=== PATIENT | female | born 1995 | race Caucasian/White ===

== ENCOUNTER 2017-01-16 17:57 | Emergency (ER) | payer MEDICAID, OTHER ==
[2017-01-16 17:58] VITALS: BMI 24.7
[2017-01-16 18:04] VITALS: TEMP 98.2
[2017-01-16] MEDS ORDERED: Sodium Chloride 0.9% 1,000 ML IV STA (18:33)
--- NOTE | 2017-01-16 18:39 | ED PDOC ---
Arrival/HPI - General Chief Complaint: GI Problem Time Seen by Provider: 01/16/17 18:27 Historian: Patient - History of Present Illness Narrative History of Present Illness (Text): 01/16/17 18:35 Vivi Cortes is a 21 year old female who presents to the emergency department complaining of epigastric abdominal pain associated with nausea and vomiting since today morning. States she had 9 episodes of non-bloody, non- bilious vomiting since today morning. Denies any sick contacts at home or new foods. Tangentially, patient also informs that she has increased urge to urinate , but is unable to void completely. States last menstrual period was last week. Denies any burning sensation while urinating or flank pain. Denies any fever, chills, headache, dizziness, difficulty breathing, diarrhea, or any other complaints at this time. Time/Duration: Other (today morning ) Symptom Onset: Gradual Symptom Course: Unchanged Severity Level: Mild Activities at Onset: Light Past Medical History - Provider Review Nursing Documentation Reviewed: Yes - Infectious Disease Hx of Infectious Diseases: None - Tetanus Immunization Tetanus Immunization: Unknown - Cardiac Hx Cardiac Disorders: No - Pulmonary Hx Asthma: Yes - Neurological Hx Neurological Disorder: No - HEENT Hx HEENT Disorder: No - Renal Hx Renal Disorder: No - Endocrine/Metabolic Hx Endocrine Disorders: No - Hematological/Oncological Hx Blood Disorders: No - Integumentary Hx Dermatological Disorder: No - Musculoskeletal/Rheumatological Hx Musculoskeletal Disorders: No - Gastrointestinal Hx Gastrointestinal Disorders: No - Genitourinary/Gynecological Hx Genitourinary Disorders: No - Psychiatric Hx Psychophysiologic Disorder: Yes Hx Anxiety: Yes Hx Depression: Yes Hx Substance Use: Yes (CANNABIS) - Anesthesia Hx Anesthesia: No Hx Anesthesia Reactions: No Hx Malignant Hyperthermia: No - Suicidal Assessment Feels Threatened In Home Enviroment: No Family/Social History - Physician Review Nursing Documentation Reviewed: Yes Family/Social History: No Known Family HX Smoking Status: Never Smoked Hx Alcohol Use: Yes Frequency of alcohol use: Socially Hx Substance Use: Yes (CANNABIS) Allergies/Home Meds Allergies/Adverse Reactions: Allergies No Known Allergies Allergy (Verified 01/16/17 18:04) Home Medications: Home Meds Medication Instructions Recorded Confirmed Sertraline [Zoloft] 100 mg PO DAILY 01/16/17 01/16/17 Review of Systems - Physician Review All systems were reviewed & negative as marked: Yes - Review of Systems Constitutional: Normal. absent: Fatigue, Fevers Respiratory: Normal. absent: SOB, Cough, Sputum Cardiovascular: Normal. absent: Chest Pain, Palpitations Gastrointestinal: Abdominal Pain, Nausea, Vomiting. absent: Diarrhea Genitourinary Female: Frequency. absent: Vaginal Bleeding, Vaginal Discharge Neurological: Normal. absent: Headache, Dizziness Physical Exam Vital Signs Reviewed: Yes Vital Signs Temp Pulse Resp BP Pulse Ox 01/16/17 19:55 78 18 118/76 100 01/16/17 18:00 98.2 F 94 H 19 127/85 99 Temperature: Afebrile Blood Pressure: Normal Pulse: Regular Respiratory Rate: Normal Appearance: Positive for: Well-Appearing, Non-Toxic, Comfortable Pain Distress: None Mental Status: Positive for: Alert and Oriented X 3 - Systems Exam Head: Present: Atraumatic, Normocephalic Pupils: Present: PERRL Conjunctiva: Present: Normal Mouth: Present: Moist Mucous Membranes Respiratory/Chest: Present: Clear to Auscultation, Good Air Exchange. No: Respiratory Distress, Accessory Muscle Use Cardiovascular: Present: Regular Rate and Rhythm, Normal S1, S2. No: Murmurs Abdomen: Present: Tenderness (Epigastric tenderness with guarding ), Normal Bowel Sounds, Guarding. No: Distention, Peritoneal Signs, Rebound Upper Extremity: Present: Normal Inspection. No: Cyanosis, Edema Lower Extremity: Present: Normal Inspection. No: Edema Neurological: Present: GCS=15, CN II-XII Intact, Speech Normal, Motor Func Grossly Intact, Normal Sensory Function Skin: Present: Warm, Dry, Normal Color. No: Rashes Psychiatric: Present: Alert, Oriented x 3, Normal Insight, Normal Concentration Medical Decision Making ED Course and Treatment: 01/16/17 18:41 Impression: A 21 year old female who presents to the emergency department complaining of epigastric pain associated with nausea and vomiting. Also notes of urinary symptoms. Differential Diagnosis included but are not limited to: abdominal pain secondary to gastritis. Urinary symptoms r/o UTI Plan: -- Labs -- Pepcid -- Zofran -- IVF -- Urine Culture -- Urinalysis -- Reassess and disposition Progress Notes: 01/16/17 20:26. Labs reviewed and negative. UA negative for UTI. Patient well hydrated. She no longer has symptoms. She was advised to keep well hydrated and take medications as prescribed. Advised to return to the ED if symptoms worsen or any other concern. - Lab Interpretations Lab Results: 01/16/17 18:43 01/16/17 18:43 Lab Results 01/16/17 18:43: Urine Color Yellow, Urine Appearance Clear, Urine pH 7.0, Ur Specific [place] 1.015, Urine Protein 30 H, Urine Glucose (UA) Negative, Urine Ketones >=80, Urine Blood Negative, Urine Nitrate Negative, Urine Bilirubin Negative, Urine Urobilinogen 1.0 H, Ur Leukocyte Esterase Negative, Urine RBC 0 - 2, Urine WBC 0 - 2, Ur Epithelial Cells 3 - 4, Calcium Oxalate Crystal Small, Urine Bacteria Mod 01/16/17 18:43: Sodium 139, Potassium 4.3, Chloride 104, Carbon Dioxide 24, Anion Gap 15, BUN 14, Creatinine 0.7, Est GFR ( Amer) > 60, Est GFR (Non- Af Amer) > 60, Random Glucose 80, Calcium 9.3, Total Bilirubin 0.5, AST 40 H, ALT 28, Alkaline Phosphatase 59, Total Protein 7.6, Albumin 4.3, Globulin 3.3, Albumin/Globulin Ratio 1.3, Lipase 53 01/16/17 18:43: WBC 7.9, RBC 4.39, Hgb 13.4, Hct 39.1, MCV 89.1, MCH 30.5, MCHC 34.3, RDW 13.2, Plt Count 284, MPV 9.2, Gran % 81.3 H, Lymph % (Auto) 13.5 L, [place] % (Auto) 4.4, Eos % (Auto) 0.5 L, Baso % (Auto) 0.3, Gran # 6.46, Lymph # 1.1 L, [place] # 0.4, Eos # 0.0, Baso # 0.02 I have reviewed the lab results: Yes Interpretation: All labs normal - Medication Orders Current Medication Orders: Discontinued Medications Famotidine (Pepcid) 20 mg IVP STAT STA Stop: 01/16/17 18:34 Last Admin: 01/16/17 18:52 Dose: 20 mg Sodium Chloride (Sodium Chloride 0.9%) 1,000 mls @ 1,000 mls/hr IV .Q1H STA Stop: 01/16/17 19:32 Last Admin: 01/16/17 18:53 Dose: 1,000 mls/hr Ondansetron HCl (Zofran Inj) 4 mg IVP STAT STA Stop: 01/16/17 18:34 Last Admin: 01/16/17 18:53 Dose: 4 mg - Scribe Statement The provider has reviewed the documentation as recorded by the Maryellenibyumi Hoang Provider Attestation: Provider Scribe Attestation: All medical record entries made by the Maryellenibe were at my direction and personally dictated by me. I have reviewed the chart and agree that the record accurately reflects my personal performance of the history, physical exam, medical decision making, and the department course for this patient. I have also personally directed, reviewed, and agree with the discharge instructions and disposition. Disposition/Present on Arrival - Present on Arrival Any Indicators Present on Arrival: No History of DVT/PE: No History of Uncontrolled Diabetes: No Urinary Catheter: No History of Decub. Ulcer: No History Surgical Site Infection Following: None - Disposition Have Diagnosis and Disposition been Completed?: Yes Diagnosis: Abdominal pain Disposition: HOME/ ROUTINE Disposition Time: 20:26 Patient Plan: Discharge Condition: IMPROVED Discharge Instructions (ExitCare): Acute Abdominal Pain (ED) Additional Instructions: Ms Cortes, thank you for letting us take care of you today. Your provider was Dr. Welch. You were treated for Abdominal Pain The emergency medical care you received today was directed at your acute symptoms. If you were prescribed any medication, please fill it and take as directed. It may take several days for your symptoms to resolve. Return to the Emergency Department if your symptoms worsen, do not improve, or if you have any other problems. Please contact your doctor or call one of the physicians/clinics you have been referred to that are listed on the Patient Visit Information form that is included in your discharge packet. Bring any paperwork you were given at discharge with you along with any medications you are taking to your follow up visit. Our treatment cannot replace ongoing medical care by a primary care provider (PCP) outside of the emergency department. Thank you for allowing the [facility] team to be part of your care today. If you had an X-Ray or CT scan: A Radiologist will review the ED reading if any change in treatment is needed we will contact you. If you had a blood, urine, or wound culture: It will take several days for the results, if any change in treatment is needed we will contact you. If you had an STI test: It will take 48 hours for the results. Please call after 1 week if you have not heard back. Prescriptions: Ondansetron ODT [Zofran ODT] 4 mg PO Q6 #14 odt Ranitidine HCl [Zantac] 150 mg PO BID PRN #30 tablet PRN Reason: Pain, Mild (1-3) Referrals: Connor Castanon DO [Primary Care Provider] - Follow up with primary Forms: [email or web address] (Polish), WORK NOTE
[2017-01-16 19:13] LABS: BASO # 0.02 K/mm3 (0.0-2.0); BASO % 0.3 % (0.0-3.0); EOS % 0.5 % (1.5-5.0); GRAN # 6.46 (1.4-6.5); GRAN % 81.3 % (50.0-68.0); HEMOGLOBIN 13.4 gm/dL (12.0-16.0); LYMPH # 1.1 (1.2-3.4); LYMPH % 13.5 % (22.0-35.0); MEAN CELL VOLUME 89.1 fL (80.0-105.0); MEAN CORPUSCULAR HEMOGLOBIN 30.5 pg (25.0-35.0); MEAN CORPUSCULAR HGB CONC 34.3 g/dl (31.0-37.0); MEAN PLATELET VOLUME 9.2 fl (7.0-11.0); MONO # 0.4 (0.1-0.6); MONO % 4.4 % (1.0-6.0); PLATELET COUNT 284 10^3/uL (120.0-450.0); RBC 4.39 10^6/uL (3.5-6.1); RED CELL DISTRIBUTION WIDTH 13.2 % (11.5-14.5); WHITE BLOOD COUNT 7.9 10^3/ul (4.5-11.0)
[2017-01-16 19:14] LABS: URINE BILIRUBIN NEGATIVE (NEGATIVE); URINE BLOOD NEGATIVE (NEGATIVE); URINE GLUCOSE (UA) NEGATIVE (NEGATIVE); URINE LEUKOCYTE ESTERASE NEGATIVE Leu/uL (NEGATIVE); URINE NITRATE NEGATIVE (NEGATIVE); URINE PROTEIN 30 mg/dL (<30 mg/dL)
[2017-01-16 19:22] LABS: ALB/GLOB RATIO 1.3 (1.1-1.8); ALBUMIN 4.3 g/dL (3.0-4.8); ALT/SGPT 28 U/L (7-56); AST/SGOT 40 U/L (15-39); BLOOD UREA NITROGEN 14 mg/dL (7-21); CALCIUM 9.3 mg/dL (8.4-10.5); GFR AFRICAN-AMERICAN > 60; GFR NON-AFRICAN AMERICAN > 60; LIPASE 53 U/L (23-300)
[2017-01-16 19:29] LABS: URINE APPEARANCE CLEAR (CLEAR); URINE COLOR YELLOW (YELLOW)
[2017-01-16 19:58] VITALS: BP 118/76; PULSE 78; RESP 18; O2SAT 100
[2017-01-16 19:58] LABS: URINE BACTERIA MOD (NEG); URINE CALCIUM OXALATE CRYSTALS SMALL /hpf; URINE RBC 0 - 2 /hpf (0-2); URINE WBC 0 - 2 /hpf (0-6)
== END 2017-01-16 20:27 | disposition home or self-care (01) ==
LOC: ED 17:57
DX: R10.9 Unspecified abdominal pain (principal)
CPT/HCPCS: 80053; 81001; 83690; 85025; 87086; 96361; 96374; 96375; 99284; J2405; J7040

== ENCOUNTER 2017-01-20 13:17 | Emergency (ER) | payer OTHER ==
[2017-01-20 13:19] VITALS: BMI 24.7
[2017-01-20 13:31] VITALS: TEMP 99; O2SAT 99
--- NOTE | 2017-01-20 13:38 | ED PDOC ---
Arrival/HPI - General Chief Complaint: Lower Extremity Problem/Injury Time Seen by Provider: 01/20/17 13:33 Historian: Patient - History of Present Illness Narrative History of Present Illness (Text): 01/20/17 13:38 21 y/o female, no significant pmh, nkda, c/o lt. foot sole pain x 2 days with no fall or trauma. Pt. stated that her shoe has been tight and been wearing different shoe, aching pain, aggravated by walking, no numbness or tingling, no calf pain, no fever or chills, no other medical or psychological complaints. Past Medical History - Provider Review Nursing Documentation Reviewed: Yes - Infectious Disease Hx of Infectious Diseases: None - Tetanus Immunization Tetanus Immunization: Unknown - Cardiac Hx Cardiac Disorders: No - Pulmonary Hx Asthma: Yes - Neurological Hx Neurological Disorder: No - HEENT Hx HEENT Disorder: No - Renal Hx Renal Disorder: No - Endocrine/Metabolic Hx Endocrine Disorders: No - Hematological/Oncological Hx Blood Disorders: No - Integumentary Hx Dermatological Disorder: No - Musculoskeletal/Rheumatological Hx Musculoskeletal Disorders: No - Gastrointestinal Hx Gastrointestinal Disorders: No - Genitourinary/Gynecological Hx Genitourinary Disorders: No - Psychiatric Hx Psychophysiologic Disorder: Yes Hx Anxiety: Yes Hx Depression: Yes Hx Substance Use: No (denies) - Anesthesia Hx Anesthesia: No Hx Anesthesia Reactions: No Hx Malignant Hyperthermia: No - Suicidal Assessment Feels Threatened In Home Enviroment: No Family/Social History - Physician Review Nursing Documentation Reviewed: Yes Family/Social History: Unknown Family HX Smoking Status: Never Smoked Hx Alcohol Use: No (denies) Hx Substance Use: No (denies) Allergies/Home Meds Allergies/Adverse Reactions: Allergies No Known Allergies Allergy (Verified 01/16/17 18:04) Review of Systems - Review of Systems Constitutional: absent: Fatigue, Fevers Eyes: absent: Vision Changes ENT: absent: Hearing Changes Respiratory: absent: SOB, Cough Cardiovascular: absent: Chest Pain Gastrointestinal: absent: Abdominal Pain, Diarrhea, Nausea, Vomiting Genitourinary Female: absent: Dysuria, Frequency Musculoskeletal: Myalgias. absent: Arthralgias, Back Pain, Neck Pain, Joint Swelling Skin: absent: Rash, Pruritis Neurological: absent: Headache, Dizziness Physical Exam Vital Signs Reviewed: Yes Vital Signs Temp Pulse Resp BP Pulse Ox 01/20/17 13:30 99 F 77 16 99/66 L 99 Temperature: Afebrile Pulse: Regular Respiratory Rate: Normal Appearance: Positive for: Well-Appearing, Non-Toxic, Comfortable Pain Distress: Mild Mental Status: Positive for: Alert and Oriented X 3 - Systems Exam Head: Present: Atraumatic, Normocephalic Pupils: Present: PERRL Extroacular Muscles: Present: EOMI Conjunctiva: Present: Normal Mouth: Present: Moist Mucous Membranes Neck: Present: Normal Range of Motion Respiratory/Chest: Present: Clear to Auscultation, Good Air Exchange. No: Respiratory Distress, Accessory Muscle Use Cardiovascular: Present: Regular Rate and Rhythm, Normal S1, S2. No: Murmurs Abdomen: Present: Normal Bowel Sounds. No: Tenderness, Distention, Peritoneal Signs Back: Present: Normal Inspection Upper Extremity: Present: Normal Inspection. No: Cyanosis, Edema Lower Extremity: Present: Normal Inspection, Other (Lt. foot: +ttp and stiffness on the plantar aspect region, no bony tenderness or deformity, negative jane and merrill signs, FROM without limitation, sensation intact, motor 5/5, +DPPT pulses, capillary refill< 2 seconds, neurovascular intact. ). No: Edema Neurological: Present: GCS=15, Speech Normal, Motor Func Grossly Intact, Gait Normal, Memory Normal Skin: Present: Warm, Dry, Normal Color. No: Rashes Psychiatric: Present: Alert, Oriented x 3, Normal Insight, Normal Concentration Medical Decision Making ED Course and Treatment: 01/20/17 14:22 -This is clinically plantar fasciitis -Mak wrap -There is no emergent indication of radiology studies. -Pt. has crutches and is in the ER. -Discharge home with indomethacin, mak wrap, crutches, ice compression, follow up with your own pmd and proposal manager within 2 days, return to the ER for any new or worsening signs or symptoms. - PA / VALVE ASSEMBLER / Resident Statement MD/DO has reviewed & agrees with the documentation as recorded. Disposition/Present on Arrival - Present on Arrival Any Indicators Present on Arrival: No History of DVT/PE: No History of Uncontrolled Diabetes: No Urinary Catheter: No History of Decub. Ulcer: No History Surgical Site Infection Following: None - Disposition Have Diagnosis and Disposition been Completed?: Yes Diagnosis: Plantar fasciitis of left foot Disposition: HOME/ ROUTINE Disposition Time: 14:23 Patient Plan: Discharge Condition: GOOD Additional Instructions: -Discharge home with indomethacin, mak wrap, crutches, ice compression, follow up with your own pmd and proposal manager within 2 days, return to the ER for any new or worsening signs or symptoms. Prescriptions: Indomethacin [Indocin] 50 mg PO TID PRN #30 cap PRN Reason: Other Referrals: PCP,NO [Primary Care Provider] - Follow up with primary Kenan Reyes DPM [Staff Provider] - Follow up with primary [facility] [Outside] - Follow up with primary Forms: [employer] ([place]), WORK NOTE
[2017-01-20 14:29] VITALS: BP 101/65; PULSE 74; RESP 18
== END 2017-01-20 14:36 | disposition home or self-care (01) ==
LOC: ED 13:17
DX: M72.2 Plantar fascial fibromatosis (principal)

== ENCOUNTER 2017-03-24 19:17 | Emergency (ER) | payer OTHER ==
[2017-03-24 19:17] VITALS: BMI 24.7
[2017-03-24 19:32] VITALS: BP 111/75; PULSE 84; RESP 18; TEMP 98.6; O2SAT 97
--- NOTE | 2017-03-24 20:12 | ED PDOC ---
Arrival/HPI - General Chief Complaint: Lower Extremity Problem/Injury Time Seen by Provider: 03/24/17 19:36 - History of Present Illness Narrative History of Present Illness (Text): 21 year old female presenting with pain on the medial and plantar aspect of the right foot. The pain that started intermittently yesterday when she was driving and worsened acutely this mornings when she walked out of bed. She scales the pain an 8/10, without radiation, improved with rest, worsened with weight bearing. The patient denies any trauma, swelling, numbness, tingling, or weakness of the affected foot. She was seen at [facility] [place] ED in early January and treated for suspected plantar fascitis and subsequently followed up with her PMD , Dr. Connor Castanon who obtained X-rays of the right foot and reported to the patient that she had no fractures and to continue with the recommended exercises prescribed in the ED. She denies any fever, chills, or night sweats or other joint pain. 03/24/17 20:00 (Shanta Lay) Past Medical History - Provider Review Nursing Documentation Reviewed: Yes - Infectious Disease Hx of Infectious Diseases: None - Tetanus Immunization Tetanus Immunization: Unknown - Cardiac Hx Cardiac Disorders: No - Pulmonary Hx Respiratory Disorders: Yes Hx Asthma: Yes - Neurological Hx Neurological Disorder: No - HEENT Hx HEENT Disorder: No - Renal Hx Renal Disorder: No - Endocrine/Metabolic Hx Endocrine Disorders: No - Hematological/Oncological Hx Blood Disorders: No - Integumentary Hx Dermatological Disorder: No - Musculoskeletal/Rheumatological Hx Musculoskeletal Disorders: No - Gastrointestinal Hx Gastrointestinal Disorders: No - Genitourinary/Gynecological Hx Genitourinary Disorders: No - Psychiatric Hx Psychophysiologic Disorder: Yes Hx Anxiety: Yes Hx Depression: Yes Hx Substance Use: No (denies) - Surgical History Other/Comment: Ovarian cyst removed - Anesthesia Hx Anesthesia: Yes Hx Anesthesia Reactions: No Hx Malignant Hyperthermia: No - Suicidal Assessment Feels Threatened In Home Enviroment: No Family/Social History - Physician Review Nursing Documentation Reviewed: Yes Family/Social History: No Known Family HX Smoking Status: Current Some Days Smoker Hx Alcohol Use: Yes (denies) Frequency of alcohol use: Socially Hx Substance Use: No (denies) Allergies/Home Meds Allergies/Adverse Reactions: Allergies No Known Allergies Allergy (Verified 03/24/17 19:28) Review of Systems - Physician Review All systems were reviewed & negative as marked: Yes Physical Exam - Systems Exam Head: Present: Atraumatic, Normocephalic Pupils: Present: PERRL Extroacular Muscles: Present: EOMI Conjunctiva: Present: Normal. No: Injected Mouth: Present: Moist Mucous Membranes, Normal Tounge, Normal Teeth Nose (External): Present: Atraumatic. No: Abrasion Neck: Present: Normal Range of Motion, Trachea Midline Respiratory/Chest: Present: Clear to Auscultation, Good Air Exchange. No: Accessory Muscle Use Cardiovascular: Present: Regular Rate and Rhythm, Normal S1, S2. No: Murmurs Upper Extremity: Present: Normal Inspection Lower Extremity: Present: Other (tenderness to palpation along the medial and plantar aspect of the right foot, no swelling, pulses intact, patellar and achilles tendor reflexes 2/4 and symmetric, sensation equal bilaterally, no lower extremity edema. ) Neurological: Present: CN II-XII Intact, Speech Normal, Motor Func Grossly Intact, Normal Sensory Function Skin: Present: Warm, Dry, Normal Color Psychiatric: Present: Alert, Oriented x 3, Normal Insight Vital Signs Temp Pulse Resp BP Pulse Ox 03/24/17 19:31 98.6 F 84 18 111/75 97 Medical Decision Making ED Course and Treatment: Seen with the resident. Plan referral to podiatry indication for x-ray at this time, appears to be exacerbation of her plantar fasciitis. 03/24/17 20:37 (Peter Mckeon) Patient agreeable to follow up with laborer poultry hatchery for further evaluation and management of likely plantar fascitis. 03/24/17 20:22 Patient requesting crutches. Patient given crutches, unable to enter into chart given that patient's chart was closed, prematurely. 03/24/17 20:43 (Shanta Lay) Disposition/Present on Arrival - Present on Arrival Any Indicators Present on Arrival: No History of DVT/PE: No History of Uncontrolled Diabetes: No Urinary Catheter: No History of Decub. Ulcer: No History Surgical Site Infection Following: None - Disposition Have Diagnosis and Disposition been Completed?: Yes Disposition Time: 20:28 - Disposition Diagnosis: Plantar fasciitis Disposition: HOME/ ROUTINE Patient Problems: Current Active Problems Problem Status Onset Plantar fasciitis Acute Condition: GOOD Additional Instructions: [Ms. Cortes], thank you for letting us take care of you today. Your provider was [Dr. Lay and Dr. Mckeon]. You were treated for [Plantar Fascitis]. The emergency medical care you received today was directed at your acute symptoms. If you were prescribed any medication, please fill it and take as directed. It may take several days for your symptoms to resolve. Return to the Emergency Department if your symptoms worsen, do not improve, or if you have any other problems. Please contact your doctor or call one of the physicians/clinics you have been referred to that are listed on the Patient Visit Information form that is included in your discharge packet. Bring any paperwork you were given at discharge with you along with any medications you are taking to your follow up visit. Our treatment cannot replace ongoing medical care by a primary care provider (PCP) outside of the emergency department. Thank you for allowing the [facility] team to be part of your care today. If you had an X-Ray or CT scan: A Radiologist will review the ED reading if any change in treatment is needed we will contact you. If you had a blood, urine, or wound culture: It will take several days for the results, if any change in treatment is needed we will contact you. If you had an STI test: It will take 48 hours for the results. Please call after 1 week if you have not heard back. Prescriptions: Ibuprofen [Motrin Tab] 800 mg PO Q8H #15 tab Referrals: Sathya Kaiser DPM [Staff Provider] - Follow up with primary Forms: [employer] (Stateless)
== END 2017-03-24 20:29 | disposition home or self-care (01) ==
LOC: ED 19:17
DX: M72.2 Plantar fascial fibromatosis (principal)